=== PATIENT | female | born 1950 | race Caucasian/White ===

== ENCOUNTER → 2018-01-11 | Outpatient (CLI) | payer OTHER, MEDICARE ==
[~2018-01-11] MED LIST: ACE500 PO; AZI250 PO; CEPH-13 PO; CYAN50TA3 IM; CYC10 PO; FERR-53 PO; GABA-549 PO; HYDR-317 PO; HYDR-385 PO; IBU600 PO; LEV175 PO; LEVO175T42 PO; LEVO200T50 PO; LIDO700A29 TD; LOR5 PO; LOR5/325 PO; PNEU0.5D3 IM; Return to Work; TYLENOL ARTHRITIS; VALA100059 PO; [UNRECOGNIZED DRUG - CODE] IM; [UNRECOGNIZED DRUG - OTHER]
[2018-01-11 14:37] LABS: PLATELET COUNT, AUTOMATED 324 K/uL (150-450)
== END ==
LOC: LAB 14:18
PROVIDERS: ATTEND Nurse Practitioner Family
DX: E03.9 Hypothyroidism, unspecified (principal); D64.9 Anemia, unspecified
CPT/HCPCS: 36415; 84443; 85025

== ENCOUNTER → 2018-01-12 | Outpatient (CLI) | payer OTHER, MEDICARE | LOC: LAB 10:52 | PROVIDERS: ATTEND Nurse Practitioner Family | DX: D64.9 Anemia, unspecified (principal) | CPT/HCPCS: 36415; 82728; 83540; 83550; 85045 ==

== ENCOUNTER → 2018-02-06 | Outpatient (CLI) | payer OTHER ==
--- NOTE | 2018-02-07 11:05 | RADIOLOGY IMAGING REPORT ---
FACILITY: [facility] - [place] PATIENT NAME: KWESI DEE : [id number] MR: [id number] V: [id number] EXAM DATE: [id number] ORDERING PHYSICIAN: PATSY DAVISON TECHNOLOGIST: Vidya Acuna PROCEDURE:BILATERAL DIGITAL SCREENING MAMMOGRAM WITH CAD ASSISTED INTERPRETATION & 3D TOMOSYNTHESIS COMPARISON:Prior mammograms 07/14/15, 09/11/13 INDICATIONS:screening FINDINGS: Breast tissue demonstrates scattered fibroglandular densities. There is no dominant mass, suspicious cluster of calcifications or persistent areas of architectural distortion. DIAGNOSTIC CATEGORY 1--NEGATIVE. RECOMMENDATIONS: ROUTINE MAMMOGRAM AND CLINICAL EVALUATION. IMPRESSION: BIRADS 1: Negative Recommend the patient resumes screening mammography in 1 year. Dictated by: Jayro Mclean M.D. on 02/07/2018 at 8:14 Transcribed by: JIMMIE on 02/07/2018 at 10:09 Approved by: Jayro Mclean M.D. on 02/07/2018 at 11:04 [facility]
== END ==
LOC: MAMO 00:46
PROVIDERS: ATTEND Nurse Practitioner Family
DX: Z12.31 Encounter for screening mammogram for malignant neoplasm of breast (principal); R92.1 Mammographic calcification found on diagnostic imaging of breast
CPT/HCPCS: 77063; 77067

== ENCOUNTER 2018-02-08 10:55 | Emergency (ER) | payer OTHER ==
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
[2018-02-08] MEDS ORDERED: APAP/HYDROCODONE 325/5 TAB PO ONE (11:05)
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
[2018-02-08 12:00] VITALS: BP 162/86
== END 2018-02-08 12:11 | disposition home or self-care (01) ==
LOC: ER 11:03
DX: S40.022A Contusion of left upper arm, initial encounter (principal); V49.40XA Driver injured in collision with unspecified motor vehicles in traffic accident, initial encounter
CPT/HCPCS: 71045; 73060; 99283; A4565

== ENCOUNTER → 2018-02-14 | Outpatient (CLI) | payer OTHER ==
[2018-02-14 10:29] LABS: PLATELET COUNT, AUTOMATED 285 K/uL (150-450)
== END ==
LOC: LAB 10:18
PROVIDERS: ATTEND Nurse Practitioner Family
DX: D64.9 Anemia, unspecified (principal)
CPT/HCPCS: 36415; 85025

== ENCOUNTER → 2018-04-12 | Outpatient (CLI) | payer OTHER | LOC: LAB 11:08 | PROVIDERS: ATTEND Nurse Practitioner Family | DX: E03.9 Hypothyroidism, unspecified (principal) | CPT/HCPCS: 36415; 84443 ==

== ENCOUNTER 2018-06-09 18:06 | Emergency (ER) | payer OTHER ==
[2018-06-09 18:09] VITALS: BP 160/78
--- NOTE | 2018-06-09 18:35 | RADIOLOGY IMAGING REPORT ---
FACILITY: [facility] - [place] PATIENT NAME: Jhoan Real : 1950 MR: [id number] V: [id number] EXAM DATE: ORDERING PHYSICIAN: JAY OBRIEN TECHNOLOGIST: Location: [facility] Patient: Jhoan Real : 1950 Visit/Account:[id number] Date of Sevice: 06/09/2018 EXAMINATION: Right shoulder 2 views. HISTORY: Right shoulder pain. COMPARISON: None FINDINGS: No evidence of acute fracture or dislocation about the right shoulder. Normal alignment at the glenoh umeral and acromioclavicular joints. The subacromial space is preserved. Visualized upper right ribs appear intact. IMPRESSION: Negative right shoulder. Report Dictated By: Mir Mitchell MD at 06/09/2018 6:31 PM Report E-Signed By: Mir Mitchell MD at 06/09/2018 6:32 PM WSN:[id number]
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
== END 2018-06-09 18:49 | disposition home or self-care (01) ==
LOC: ER 18:18
DX: S49.91XA Unspecified injury of right shoulder and upper arm, initial encounter (principal)
CPT/HCPCS: 99283

== ENCOUNTER → 2018-07-21 | Outpatient (CLI) | payer OTHER | LOC: LAB 12:38 | PROVIDERS: ATTEND Nurse Practitioner Family | DX: E03.9 Hypothyroidism, unspecified (principal) | CPT/HCPCS: 36415; 84443 ==

== ENCOUNTER → 2018-07-25 | Outpatient (REF) | payer OTHER | LOC: ZZSENDIN 08:44 | PROVIDERS: ATTEND Nurse Practitioner Family | DX: E03.9 Hypothyroidism, unspecified (principal) | CPT/HCPCS: 84439; 84480 ==

== ENCOUNTER 2019-04-06 19:21 | Emergency (ER) | payer OTHER ==
[2019-04-06 19:24] VITALS: BP 140/124
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
== END 2019-04-06 19:34 | disposition home or self-care (01) ==
LOC: ER 19:26
DX: S00.83XA Contusion of other part of head, initial encounter (principal); S09.90XA Unspecified injury of head, initial encounter; S16.1XXA Strain of muscle, fascia and tendon at neck level, initial encounter; Y04.2XXA Assault by strike against or bumped into by another person, initial encounter
CPT/HCPCS: 99282